=== PATIENT | female | born 1950 | race Hispanic/Latino ===

== ENCOUNTER → 2018-08-13 | Outpatient (CLI) | payer MEDICARE ==
[~2018-08-13] MED LIST: AMLO-341 PO; ASPI-1197 PO; CHOL200074 PO; CYAN100022 SL; DEXL60CA3 PO; EMPA25TA PO; FENO160T16 PO; GLYB-228 PO; IBAN150T PO; MULT1CAP32 PO; PIOG30TA10 PO; PRAV20TA4 PO; SITA100T12 PO
== END | disposition home or self-care (01) ==
LOC: SHCH 14:31
PROVIDERS: ATTEND Internal Medicine Cardiovascular Disease
DX: I51.7 Cardiomegaly (principal); I35.8 Other nonrheumatic aortic valve disorders
CPT/HCPCS: 93306

== ENCOUNTER → 2018-08-14 | Outpatient (CLI) | payer MEDICARE ==
[~2018-08-14] VITALS: Ht 157.5 cm; Wt 81.6 kg
[~2018-08-14] MED LIST changes: +REGADENOSON 0.4 MG/5 ML PF SYG IVP SCH
== END ==
LOC: SHCH 07:47
PROVIDERS: ATTEND Internal Medicine Cardiovascular Disease
DX: R07.9 Chest pain, unspecified (principal)
CPT/HCPCS: 78452; 93017; 96374; A9500 ×2; J2785

== ENCOUNTER → 2022-11-20 | Outpatient (CLI) | payer MEDICARE ==
[~2022-11-20] MED LIST changes: -AMLO-341 PO; +AMLO-513 PO; +CEFD300C3 PO; -CHOL200074 PO; -CYAN100022 SL; +DAPA10TA PO; +ERGO500014 PO; -FENO160T16 PO; +GLYB-173 PO; -GLYB-228 PO; -IBAN150T PO; +IBAN150T16 PO; +LEVO5TAB13 PO; +LORA0.5T2 PO; +NAPR-337 PO; +NITR0.4T50 SL; +PIOG15TA66 PO; -REGADENOSON 0.4 MG/5 ML PF SYG IVP SCH; +SITA50TA PO
== END | disposition home or self-care (01) ==
LOC: RAH 08:50
PROVIDERS: ATTEND Internal Medicine Cardiovascular Disease
DX: I10 Essential (primary) hypertension (principal); R94.30 Abnormal result of cardiovascular function study, unspecified; M47.815 Spondylosis without myelopathy or radiculopathy, thoracolumbar region
CPT/HCPCS: 75574